=== PATIENT | male | born 1950 | race Caucasian/White ===

== ENCOUNTER → 2023-10-22 | Outpatient (CLI) | payer OTHER ==
[~2023-10-22] MED LIST: AEC81 PO; AMIO200T44 PO; APIX5TAB PO; ATOR10 PO; CETI10TA87 PO; FLUT16H NASAL; FURO20TA4 PO; METO50TA9 PO; MIRT-22 PO; NITR0.4T50 SL; PANT40TA54 PO; VIT1CAPS47 PO
== END | disposition home or self-care (01) ==
LOC: SHCH 13:46
PROVIDERS: ATTEND Internal Medicine Cardiovascular Disease
DX: I08.0 Rheumatic disorders of both mitral and aortic valves (principal); I25.10 Atherosclerotic heart disease of native coronary artery without angina pectoris; I11.9 Hypertensive heart disease without heart failure; E78.5 Hyperlipidemia, unspecified; Z95.1 Presence of aortocoronary bypass graft
CPT/HCPCS: 93306

== ENCOUNTER 2024-01-05 15:21 | Observation (INO) | payer OTHER ==
[~2024-01-05] VITALS: Ht 172.7 cm; Wt 102.5 kg
[2024-01-05 16:00] LABS: BASOPHILS # (AUTO) 0.05 K/uL (0.00-0.20); BASOPHILS % (AUTO) 0.6 % (0.0-5.0); EOSINOPHILS # (AUTO) 0.27 K/uL (0.00-0.70); EOSINOPHILS % (AUTO) 3.3 % (0.0-8.0); HEMATOCRIT 43.2 % (42-54); IMMATURE GRANULOCYTE ABSOLUTE 0.03 K/uL (0-1); LYMPHOCYTES # (AUTO) 2.3 K/uL (1.0-4.8); MEAN CORPUSCULAR HEMOGLOBIN 28.9 pg (27.0-33.0); MEAN CORPUSCULAR HGB CONC 33.1 g/dL (32.0-36.0); MEAN CORPUSCULAR VOLUME 87.3 fL (79-99); MONOCYTES # (AUTO) 0.8 K/uL (0.1-1.0); MONOCYTES % (AUTO) 9.3 % (3.0-13.0); NEUTROPHILS # (AUTO) 4.6 K/uL (1.8-7.7); NEUTROPHILS % (AUTO) 57.4 % (40.0-77.0); PLATELET COUNT (AUTO) 235 K/uL (130-400); RED BLOOD CELL COUNT(AUTO) 4.95 MIL/uL (4.50-6.20); RED CELL DISTRIBUTION WIDTH 15.7 % (11.0-15.5); WHITE BLOOD COUNT (AUTO) 8.1 K/uL (4.8-10.8)
[2024-01-05 16:10] LABS: CREATININE 1.4 mg/dL (0.5-1.3); POTASSIUM 4.4 mmol/L (3.5-5.1)
[2024-01-05 16:23] LABS: B-TYPE NATRIURETIC PEPTIDE 120 pg/mL (0-100)
[2024-01-05] MEDS: NITROGLYCERIN 0.4 MG SL TAB SL PRN (16:57)
[2024-01-05] MEDS: ASPIRIN 325MG TAB PO ONE (17:47)
[2024-01-05] MEDS: LACTATED RINGERS 1000ML 1,000 ML IV SCH (18:30)
[2024-01-05 19:46] LABS: APPEARANCE,URINE CLEAR (CLEAR); BILIRUBIN,URINE NEGATIVE (NEGATIVE); COLOR,URINE LIGHT-YELLOW (YELLOW); GLUCOSE, URINE (UA) NEGATIVE (NEGATIVE); KETONES,URINE NEGATIVE (NEGATIVE); LEUKOCYTE ESTERASE ,URINE NEGATIVE Leu/uL (NEGATIVE); NITRATE,URINE NEGATIVE (NEGATIVE); OCCULT BLOOD,URINE NEGATIVE (NEGATIVE); PH,URINE 5.5 (5.0-8.0); PROTEIN,URINE NEGATIVE (NEGATIVE); UROBILINOGEN,URINE 0.2 mg/dL (0.2-1.0)
[2024-01-05 19:48] LABS: ADD UA MICROSCOPIC NO
[2024-01-05] MEDS: ATORVASTATIN 20 MG TABLET PO SCH (20:15)
[2024-01-05] MEDS: CLOPIDOGREL 75MG TAB PO SCH (20:15)
[2024-01-05] MEDS: LoSARTan 25 MG TABLET PO SCH (20:15)
[2024-01-05] MEDS ORDERED: acetaMINOPHEN 325 MG TAB PO PRN ×2 (20:30)
[2024-01-05] MEDS ORDERED: ONDANSETRON 4MG INJ IV PRN (20:30)
[2024-01-05] MEDS: 0.9%NACL 1000ML 1,000 ML IV SCH (20:46)
[2024-01-05 23:50] VITALS: BP 139/76; PULSE 60; RESP 18; O2SAT 95
[2024-01-06] VITALS (8 sets, daily range): BP systolic 124–132; BP diastolic 60–74; PULSE 57–71; RESP 18–20; O2SAT 96–98
[2024-01-06] MEDS ORDERED: VALA100031 PO (00:17)
[2024-01-06] MEDS ORDERED: KETO10TA2 PO (00:17)
[2024-01-06] MEDS ORDERED: apap/codeine PO (00:17)
[2024-01-06] MEDS ORDERED: ATOR10 PO (00:24)
[2024-01-06] MEDS ORDERED: LOSA25TA41 PO (00:24)
[2024-01-06] MEDS ORDERED: MIRT-22 PO (00:24)
[2024-01-06] MEDS ORDERED: APIX5TAB PO (00:24)
[2024-01-06] MEDS ORDERED: ATOR20TA65 PO (00:24)
[2024-01-06] MEDS ORDERED: ASPI-1197 PO (00:24)
[2024-01-06] MEDS ORDERED: METO-391 PO (00:24)
[2024-01-06] MEDS ORDERED: PANT40TA54 PO (00:24)
[2024-01-06] MEDS ORDERED: MIRT45TA83 PO (00:25)
[2024-01-06] MEDS: MORPHINE 2 MG SYG IV PRN (01:00)
[2024-01-06 07:14] LABS: BASOPHILS # (AUTO) 0.04 K/uL (0.00-0.20); BASOPHILS % (AUTO) 0.4 % (0.0-5.0); EOSINOPHILS # (AUTO) 0.31 K/uL (0.00-0.70); EOSINOPHILS % (AUTO) 3.5 % (0.0-8.0); HEMATOCRIT 41.2 % (42-54); IMMATURE GRANULOCYTE ABSOLUTE 0.03 K/uL (0-1); LYMPHOCYTES # (AUTO) 2.1 K/uL (1.0-4.8); LYMPHOCYTES % (AUTO) 23.1 % (21.0-51.0); MEAN CORPUSCULAR HEMOGLOBIN 29.1 pg (27.0-33.0); MEAN CORPUSCULAR HGB CONC 32.5 g/dL (32.0-36.0); MEAN CORPUSCULAR VOLUME 89.6 fL (79-99); MONOCYTES # (AUTO) 0.8 K/uL (0.1-1.0); MONOCYTES % (AUTO) 8.4 % (3.0-13.0); NEUTROPHILS # (AUTO) 5.7 K/uL (1.8-7.7); NEUTROPHILS % (AUTO) 64.3 % (40.0-77.0); PLATELET COUNT (AUTO) 211 K/uL (130-400); RED CELL DISTRIBUTION WIDTH 15.7 % (11.0-15.5); WHITE BLOOD COUNT (AUTO) 8.9 K/uL (4.8-10.8)
[2024-01-06 07:30] LABS: CREATININE 1.3 mg/dL (0.5-1.3); MAGNESIUM 1.9 mg/dL (1.80-2.40); PHOSPHORUS 3.8 mg/dL (2.5-4.9); POTASSIUM 4.8 mmol/L (3.5-5.1)
[2024-01-06 07:55] LABS: INR 1.2 (0.85-1.15); PROTHROMBIN TIME 12.8 SEC (9.6-11.6)
[2024-01-06 07:56] LABS: PARTIAL THROMBOPLASTIN TIME 26.8 SEC (26.3-35.5)
[2024-01-06] MEDS: ASPIRIN 81 MG EC TAB PO SCH (08:53)
[2024-01-06] MEDS: FAMOTIDINE 20MG TAB PO SCH (08:54)
[2024-01-06] MEDS: metOPROLol sucCINATE 50 MG TAB.SR.24H PO SCH (08:54)
[2024-01-06] MEDS: GABApentin 100 MG CAPSULE PO SCH (09:53)
[2024-01-06] MEDS: valaCYCLOvir HCL 500 MG TABLET PO SCH (12:00)
[2024-01-06] MEDS: PREDNISONE 20 MG TABLET PO ONE (12:36)
[2024-01-06] MEDS: MIRTAZAPINE 15 MG TABLET PO SCH (20:52)
[2024-01-06] MEDS: APIXaban 5 MG TABLET PO SCH (20:52)
[2024-01-06] MEDS: LACTULOSE 20 GM/30 ML UDCUP PO PRN (22:17)
[2024-01-07] VITALS (8 sets, daily range): BP systolic 118–132; BP diastolic 64–76; PULSE 57–76; RESP 17–19; O2SAT 96–97
[2024-01-07] MEDS: doCUSate SODIUM 100 MG CAP PO SCH (09:00)
[2024-01-07] MEDS: PREDNISONE 20 MG TABLET PO SCH (09:00)
[2024-01-07] MEDS: GABAPENTIN 300 MG CAPSULE PO SCH (14:26)
[2024-01-07] MEDS ORDERED: GABA300C PO (15:16)
[2024-01-07] MEDS ORDERED: PRED20B PO (15:16)
== END 2024-01-07 16:55 | disposition home or self-care (01) ==
LOC: EDH 15:21 → EDHIP 20:07 → 4AH 23:34
PROVIDERS: ADMIT Internal Medicine; ATTEND Internal Medicine
DX: I25.709 Atherosclerosis of coronary artery bypass graft(s), unspecified, with unspecified angina pectoris (principal); I65.29 Occlusion and stenosis of unspecified carotid artery; B02.9 Zoster without complications; R79.89 Other specified abnormal findings of blood chemistry; I10 Essential (primary) hypertension; E78.5 Hyperlipidemia, unspecified; I48.0 Paroxysmal atrial fibrillation; F41.9 Anxiety disorder, unspecified; E11.9 Type 2 diabetes mellitus without complications; R60.0 Localized edema; I16.0 Hypertensive urgency; G47.30 Sleep apnea, unspecified; I25.2 Old myocardial infarction; Z79.899 Other long term (current) drug therapy; Z79.02 Long term (current) use of antithrombotics/antiplatelets; Z79.82 Long term (current) use of aspirin; Z95.1 Presence of aortocoronary bypass graft; Z88.2 Allergy status to sulfonamides; Z90.49 Acquired absence of other specified parts of digestive tract
CPT/HCPCS: 99285; 82550; 84484 ×7; 80048 ×2; 83880; 85025 ×2; 81003; 36415 ×2; 71045; 93005 ×2; 96374; 96376; 96361 ×3; 83735; 84100; 85610; 85730; 86850; 86900; 86901; 74018; G0378 ×45; J7120; A4600; J2270 ×2

== ENCOUNTER 2024-12-25 09:03 | Emergency (ER) | payer OTHER ==
[~2024-12-25] VITALS: Ht 172.7 cm; Wt 103.9 kg
[~2024-12-25 09:03] MED LIST changes: -AEC81 PO; -AMIO200T44 PO; +ASPI-1197 PO; -ATOR10 PO; +ATOR20TA65 PO; -CETI10TA87 PO; -FLUT16H NASAL; -FURO20TA4 PO; +GABA300C PO; +KETO10TA2 PO; +LOSA25TA41 PO; +METO-391 PO; -METO50TA9 PO; -MIRT-22 PO; +MIRT45TA83 PO; -NITR0.4T50 SL; +PRED20B PO; +VALA100031 PO; -VIT1CAPS47 PO
--- NOTE | 2024-12-25 09:21 | ERN ---
General Chief Complaint: Palpitations Stated Complaint: PALPITATIONS, AFIB Time Seen by : 09:06 Source: patient History of Present Illness Initial Comments Patient is a 74-year-old gentleman coming in after being sent by his computer assembler due to uncontrolled AFib. Per patient he took extra medications for his AFib. Medications include metoprolol. Upon arriving in triage he states he feels much better. Allergies: Coded Allergies: Sulfa (Sulfonamide Antibiotics) (Unverified Allergy, Intermediate, RASH, 07/17/23) Home Meds Active Scripts Prednisone (Deltasone/Orasone [Bulk]) 20 Mg Tab, 20 MG PO DAILY, #7 TAB 0 Refills Prov:SCARLET CHANG MD 01/07/24 Gabapentin (Neurontin) 300 Mg Capsule, 300 MG PO TID, #90 CAP 0 Refills Prov:SCARLET CHANG MD 01/07/24 Reported Medications Mirtazapine (Mirtazapine) 45 Mg Tablet, 22.5 MG PO HS, TAB 01/06/24 Atorvastatin Calcium (Atorvastatin Calcium) 20 Mg Tablet, 20 MG PO DAILY, TAB 01/06/24 Pantoprazole Sodium (Pantoprazole Sodium) 40 Mg Tablet.dr, 40 MG PO DAILY, TAB 01/06/24 Aspirin (Aspirin) 81 Mg Tab.chew, 81 MG PO DAILY, TAB.CHEW 01/06/24 Apixaban (Eliquis) 5 Mg Tablet, 5 MG PO BID, TAB 01/06/24 Metoprolol Succinate (Metoprolol Succinate) 50 Mg Tab.er.24h, 50 MG PO DAILY, TAB 01/06/24 Losartan Potassium (Losartan Potassium) 25 Mg Tablet, 12.5 MG PO DAILY, TAB 01/06/24 Valacyclovir HCl (Valacyclovir) 1,000 Mg Tablet, 1000 MG PO TID, TAB 01/06/24 Ketorolac Tromethamine (Ketorolac Tromethamine) 10 Mg Tablet, 10 MG PO Q6HPRN PRN for PAIN LEVEL 1 TO 5, TAB 01/06/24 Past Medical History Past Medical History: A-Fib, CAD, Heart Disease, Hypertension, Other Medical History Other: CAROTID STENOSIS Past Surgical History: Cholecystectomy, CABG Family History Family History: Negative Social History Social History: Negative ROS Dictation CONSTITUTIONAL: No chills, no fever, no weakness, no diaphoresis, no malaise. HEAD/FACE: No signs of trauma. EENT: No eye pain, no blurred vision, no tearing, no double vision, no ear pain, no ear discharge, no nose pain, no nasal congestion, no throat pain, no throat swelling, no mouth pain. RESPIRATORY: No cough, no orthopnea, no SOB, no stridor, no wheezing. CARDIOVASCULAR: No chest pain, no edema, no palpitations, no syncope. GASTROINTESTINAL/ABDOMINAL: No abdominal pain, no constipation, no diarrhea, no nausea, no vomiting. GENITOURINARY: No abnormal discharge, no dysuria, no frequent urination, no hematuria. No complaints of pain in the genitals. MUSCULOSKELETAL: No back pain, no gout, no joint pain, no joint swelling, no muscle pain, no muscle stiffness, no neck pain. INTEGUMENTARY: No change in color, no change in hair/nails, no dryness, no lesion, no lumps, no rash. NEUROLOGICAL/PSYCH: No anxiety, not depressed, no emotional problem, no headache, no numbness, no pre-existing deficit, no history of seizures, no tremors, no weakness. HEMATOLOGIC/LYMPHATIC: Not anemic, no history of blood clots, no apparent bleeding, no bruising, glands not swollen. All Systems Negative, Except as Noted. Physical Exam Physical Exam Dictation VITAL SIGNS: Reviewed. GENERAL APPEARANCE: Alert, oriented x3, no acute distress, obese. HEAD AND FACE: Non-traumatic. EYES: PERRL, pink conjunctivas, eyelid no trauma, anterior chamber clear. EARS: Pinnas intact and no signs of trauma or erythema. Ear canals clear and no discharge. TMs no erythema. NOSE: No discharge, no bleeding. OROPHARYNX: Mouth normal, teeth no caries, tongue pink. Pharynx clear, no erythema. Tonsils no exudates, no abscesses noted. Mucous membrane moist. NECK: Supple, non-tender, no thyromegaly, no masses, no JVD, no bruits. BREAST: Deferred. CHEST: No tenderness, no crepitus, no paradoxical movement, no retractions. LUNGS: Clear, well-ventilated, symmetric, no rales, no wheezing, no rhonchi, no stridor, good breath sounds bilaterally. HEART: Regular rate, regular rhythm, no murmur, no gallops. VASCULAR: No peripheral edema. ABDOMEN: Soft, positive bowel sounds, nondistended, no guarding, nontender, no rebound, no masses no hepatomegaly, no splenomegaly, no Stockton's sign, no hernias. RECTAL: Deferred. GENITAL: Deferred. NEUROLOGICAL: Normal speech, gross motor function intact, gross sensory function intact. MUSCULOSKELETAL: Neck nontender, full range of motion, back nontender, full range of motion. EXTREMITIES: Nontender, full range of motion. SKIN: Color pink, dry, no turgor, no rash, no lacerations, no abrasions, no contusions. LYMPHATICS: Deferred. Results Laboratory and Microbiology Labs Reviewed?: Yes EKG/XRAY/US/CT/MRI EKG Comment 12/25/2024 time 9:09 a.m. Ventricular rate 75 Sinus rhythm MD [address] wave elevation or depression MDM MDM: Differential diagnosis: History of AFib, wellness exam Rationale: Tests considered and ordered secondary to shared decision making include: Previous outside records reviewed: Old ER visits. Risk of complication and/or morbidity or mortality of patient management: None Medications-Per medication reconciliation Need for hospitalization: Patient does not meet criteria for hospitalization. Need for emergency major/minor surgery: No Patient is a 74-year-old male coming in complaining of uncontrolled AFib. Patient had taking in his has been medication increased states by recommendations of computer assembler. Spoke to Dr. Travis Victor's a computer assembler who sent patient in upon evaluation in triage EKG shows normal sinus rhythm with a heart rate of 75. Patient was asymptomatic. He will be discharged in stable condition with a diagnosis of AFib controlled. Patient was evaluated by computer assembler Dr. Robles per his recommendation patient is okay to be discharged on follow up as outpatient ED Course Orders Procedure Category Date Status Time 12 Lead Ekg Tracing- EKG 12/25/24 Complete Technical 09:21 Vital Signs Date Time Temp Pulse Resp B/P (MAP) Pulse Ox O2 Delivery O2 Flow Rate FiO2 12/25/24 09:08 98.2 72 16 120/66 98 Room Air* 0 21 12/25/24 09:05 98.2 69 16 120/66 97 Room Air 0 DX & DISP Disposition: Discharge Departure Impression: Primary Impression: History of atrial fibrillation Condition: Stable Additional Instructions: You have been reviewed in the emergency department at [facility] after presenting with chest pain. After considering your history, your risk factors, your EKG and your blood test troponins, have been found to be at very low risk less than (1 in 100) of having a major adverse cardiac event (like heart attack) in the near future. In the " low risk" group, the risks of doing further tests and treatment as the inpatient outweighs the benefits. In many patients in the low risk group for the test of any sort or unnecessary, however he should discuss this further with his general practitioner who will understand the medical and personal backgrounds better. Because we have never declared you" no risk" we would suggest. 1 returning for medical review if you have further episodes of chest pain/arm pain or other concerning symptoms like dizziness, collapse, palpitations or shortness of breath. 2. Following up with your local doctor who will consider the need for further testing and will also ensure that any modifiable risk factors you may have for heart disease are optimally managed. Patient will be discharged in stable condition at the moment discharge patient states , no chest pain Referrals: CASI BENITO MD (PCP) DEMETRICE OCHOA MD Dec 25, 2024 09:21
--- NOTE | 2024-12-25 09:23 | EKG ---
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
[2024-12-25 10:32] VITALS: BP 102/60; PULSE 64; RESP 16; TEMP 99; O2SAT 96
== END 2024-12-25 10:39 | disposition home or self-care (01) ==
LOC: EDH 09:03
DX: I48.91 Unspecified atrial fibrillation (principal); I25.10 Atherosclerotic heart disease of native coronary artery without angina pectoris; I11.9 Hypertensive heart disease without heart failure; Z79.01 Long term (current) use of anticoagulants; Z79.52 Long term (current) use of systemic steroids; Z79.624 Long term (current) use of inhibitors of nucleotide synthesis; Z79.82 Long term (current) use of aspirin; Z79.899 Other long term (current) drug therapy; Z88.2 Allergy status to sulfonamides; Z90.49 Acquired absence of other specified parts of digestive tract; Z95.1 Presence of aortocoronary bypass graft
CPT/HCPCS: 93005; 99284

== ENCOUNTER 2025-01-20 17:01 | Emergency (ER) | payer OTHER ==
[~2025-01-20] VITALS: Ht 172.7 cm; Wt 105.2 kg
--- NOTE | 2025-01-20 17:21 | ERN ---
ED Note History of Present Illness Stated Complaint: BRADYCARDIA Chief Complaint: Bradycardia Time Seen by MD: 17:12 Dictation: PATIENT IS A 74-YEAR-OLD MALE COMING IN HIS INSTRUCTIONAL MATERIALS DIRECTOR'S HIS DOCTOR ISABELA. PATIENT STATES HE HAS BEEN FEELING BRADYCARDIC WITH A SLOW HEART RATE WITH LIGHTHEADEDNESS FOR THE LAST SEVERAL DAYS. STATES HE WENT TO SEE HIS INSTRUCTIONAL MATERIALS DIRECTOR'S YESTERDAY AND THE PA DID AN EKG, SHE TOLD HIM THE RATE WAS SLOW AND THAT SHE WAS GOING TO REFER HIM TO A DISTRIBUTION CENTER ASSISTANT. HE STATES HE HAS HAD NO CHEST PAIN NO BACK PAIN. STATES HE HAS HAD THREE PRIOR HEART ATTACKS. HE IS CURRENTLY BRADYCARDIC, NORMOTENSIVE. HE SAID THAT LAST WEEK HE WAS IN HIS DOCTOR'S OFFICE AND HE WAS TACHYCARDIC. HE HAS TAKEN METOPROLOL 50 MG. Allergies: Coded Allergies: Sulfa (Sulfonamide Antibiotics) (Unverified Allergy, Intermediate, RASH, 07/17/23) Home Meds Active Scripts Prednisone (Deltasone/Orasone [Bulk]) 20 Mg Tab, 20 MG PO DAILY, #7 TAB 0 Refills Prov:SCARLET CHANG MD 01/07/24 Gabapentin (Neurontin) 300 Mg Capsule, 300 MG PO TID, #90 CAP 0 Refills Prov:SCARLET CHANG MD 01/07/24 Reported Medications Mirtazapine (Mirtazapine) 45 Mg Tablet, 22.5 MG PO HS, TAB 01/06/24 Atorvastatin Calcium (Atorvastatin Calcium) 20 Mg Tablet, 20 MG PO DAILY, TAB 01/06/24 Pantoprazole Sodium (Pantoprazole Sodium) 40 Mg Tablet.dr, 40 MG PO DAILY, TAB 01/06/24 Aspirin (Aspirin) 81 Mg Tab.chew, 81 MG PO DAILY, TAB.CHEW 01/06/24 Apixaban (Eliquis) 5 Mg Tablet, 5 MG PO BID, TAB 01/06/24 Metoprolol Succinate (Metoprolol Succinate) 50 Mg Tab.er.24h, 50 MG PO DAILY, TAB 01/06/24 Losartan Potassium (Losartan Potassium) 25 Mg Tablet, 12.5 MG PO DAILY, TAB 01/06/24 Valacyclovir HCl (Valacyclovir) 1,000 Mg Tablet, 1000 MG PO TID, TAB 01/06/24 Ketorolac Tromethamine (Ketorolac Tromethamine) 10 Mg Tablet, 10 MG PO Q6HPRN PRN for PAIN LEVEL 1 TO 5, TAB 01/06/24 Past Medical History Past Medical History: A-Fib, CAD, Heart Disease, Hypertension, [place], Other Additional Past Medical Hx: CAROTID STENOSIS Surgical History: Cholecystectomy, CABG Family History: Negative Social History: Negative RN Note Reviewed/Agreed w/PFSH: Yes Review of System Dictation CONSTITUTIONAL: NEGATIVE EXCEPT FOR HPI LIGHTHEADED HEAD/FACE: NEGATIVE EXCEPT FOR HPI EENT: NEGATIVE EXCEPT FOR HPI RESPIRATORY: NEGATIVE EXCEPT FOR HPI BRADYCARDIA GASTROINTESTINAL/ABDOMINAL: NEGATIVE EXCEPT FOR HPI GENITOURINARY: NEGATIVE EXCEPT FOR HPI MUSCULOSKELETAL: NEGATIVE EXCEPT FOR HPI INTEGUMENTARY: NEGATIVE EXCEPT FOR HPI NEUROLOGICAL/PSYCH: NEGATIVE EXCEPT FOR HPI HEMATOLOGIC/LYMPHATIC: NEGATIVE EXCEPT FOR HPI ALL SYSTEMS NEGATIVE, EXCEPT NOTED ABOVE. 13 POINT REVIEW OF SYSTEMS ASSESSED AND ALL NEGATIVE EXCEPT FOR ABOVE. Initial Vital Sign VS Vital Signs Date Time Temp Pulse Resp B/P (MAP) Pulse Ox O2 Delivery O2 Flow Rate FiO2 01/20/25 17:02 98.2 47 20 119/53 99 Room Air 01/20/25 17:32 0 21 Physical Exam Dictation VITAL SIGNS REVIEWED GENERAL APPEARANCE: ALERT, ORIENTED X 3, NO ACUTE DISTRESS, WELL DEVELOPED, NOURISHED. HEAD AND FACE: NON-TRAUMATIC. EYES: PERRL, PINK CONJUNCTIVAS, EYELID NO TRAUMA, ANTERIOR CHAMBER WITH ARCUS SENILIS. EARS: PINNAS INTACT AND NO SIGNS OF TRAUMA OR ERYTHEMA EAR CANALS CLEAR AND NO DISCHARGE TM NO ERYTHEMA NOSE: NO DISCHARGE, NO BLEEDING. OROPHARYNX: MOUTH NORMAL, TONGUE PINK, PHARYNX CLEAR,NO ERYTHEMA, TONSILS NO EXUDATES, NO ABSCESSES NOTED, MUCOUS MEMBRANE MOIST NECK: SUPPLE, NON-TENDER, NO THYROMEGALY, NO MASSES, NO JVD, NO BRUITS BREAST:DEFERRED CHEST:NO TENDERNESS, NO CREPITUS, NO PARADOXICAL MOVEMENT, NO RETRACTIONS LUNGS:CLEAR, WELL-VENTILATED, SYMMETRIC, NO RALES, NO WHEEZING, NO RHONCHI, NO STRIDOR, GOOD BREATH SOUNDS BILATERALLY HEART: BRADYCARDIC/REGULAR NO MURMUR, NO GALLOPS VASCULAR: TRACE PERIPHERAL EDEMA, ABDOMEN: SOFT, POSITIVE BOWEL SOUNDS, NONDISTENDED, NO GUARDING, NONTENDER, NO REBOUND, NO MASSES NO HEPATOMEGALY, NO SPLENOMEGALY, NO DAVILA'S SIGN, NO HERNIAS. RECTAL: DEFERRED GENITAL: DEFERRED NEUROLOGICAL: NORMAL SPEECH, MOTOR FUNCTION INTACT, SENSORY FUNCTION INTACT MUSCULOSKELETAL: NECK NONTENDER, FULL RANGE OF MOTION, BACK NONTENDER, FULL RANGE OF MOTION, EXTREMITIES: NONTENDER, FULL RANGE OF MOTION SKIN: COLOR PINK, DRY, NO TURGOR, NO RASH, NO LACERATIONS, NO ABRASIONS, NO CONTUSIONS. LYMPHATIC: DEFERRED Results (Laboratory/Radiology) Laboratory/Radiology Laboratory Tests Test 01/20/25 17:33 01/20/25 18:37 White Blood Count 8.1 K/uL (4.8-10.8) Red Blood Count 4.49 MIL/uL (4.50-6.20) L Hemoglobin 13.3 g/dL (14.0-18.0) L Hematocrit 40.5 % (42-54) L Mean Corpuscular Volume 90.2 fL (79-99) Mean Corpuscular Hemoglobin 29.6 pg (27.0-33.0) Mean Corpuscular Hemoglobin Concent 32.8 g/dL (32.0-36.0) Red Cell Distribution Width 13.4 % (11.0-15.5) Platelet Count 239 K/uL (130-400) Mean Platelet Volume 10.0 fL (7.5-10.5) Immature Granulocyte % (Auto) 0.2 % (0-1) Neutrophils (%) (Auto) 47.9 % (40.0-77.0) Lymphocytes (%) (Auto) 33.9 % (21.0-51.0) Monocytes (%) (Auto) 10.1 % (3.0-13.0) Eosinophils (%) (Auto) 7.2 % (0.0-8.0) Basophils (%) (Auto) 0.7 % (0.0-5.0) Neutrophils # (Auto) 3.9 K/uL (1.8-7.7) Lymphocytes # (Auto) 2.7 K/uL (1.0-4.8) Monocytes # (Auto) 0.8 K/uL (0.1-1.0) Eosinophils # (Auto) 0.58 K/uL (0.00-0.70) Basophils # (Auto) 0.06 K/uL (0.00-0.20) Absolute Immature Granulocyte (auto 0.02 K/uL (0-1) Nucleated Red Blood Cells 0.0 % (0.0-0.19) Sodium Level 137 mmol/L (136-145) Potassium Level 3.9 mmol/L (3.5-5.1) Chloride Level 103 mmol/L (101-111) Carbon Dioxide Level 27 mmol/L (21-32) Blood Urea Nitrogen 18 mg/dL (7-18) Creatinine 1.3 mg/dL (0.5-1.3) Glomerular Filtration Rate Calc 58 mL/min (>90) Random Glucose 118 mg/dL (70-105) H Total Calcium 8.7 mg/dL (8.5-10.1) Magnesium Level 2.40 mg/dL (1.80-2.40) Troponin I High Sensitivity 41 ng/L (4-75) B-Type Natriuretic Peptide 365 pg/mL (0-100) H Urine Color COLORLESS (YELLOW) Urine Appearance CLEAR (CLEAR) Urine pH 5.5 (5.0-8.0) Urine Specific [place] 1.006 (1.001-1.031) Urine Protein NEGATIVE mg/dL (NEGATIVE) Urine Glucose (UA) >=1000 mg/dL (NEGATIVE) H Urine Ketones NEGATIVE mg/dL (NEGATIVE) Urine Occult Blood NEGATIVE (NEGATIVE) Urine Nitrate NEGATIVE (NEGATIVE) Urine Bilirubin NEGATIVE mg/dL (NEGATIVE) Urine Urobilinogen 0.2 mg/dL (0.2-1.0) Urine Leukocyte Esterase NEGATIVE Amelia/uL SEFERINO: SHORTNESS A BREATH ORDERING PHYSICIAN: ARTIE WESTON NP PROCEDURE: CXR1VW - CHEST 1VW EXAM: CR Chest, 1 View. CLINICAL HISTORY: SHORTNESS A BREATH COMPARISON: Radiograph dated January 05, 2024. FINDINGS: LUNGS: The lungs show no infiltrate or other acute finding. PLEURAL SPACES: No evidence of pleural effusion or pneumothorax. MEDIASTINUM: Prior sternotomy. Heart size is stable. Pulmonary vessels and interstitial markings are within normal limits. BONES: No acute osseous abnormality. IMPRESSION: 1. No acute cardiopulmonary findings. /[place] DICTATED BY: AYDEE BLUM Jr., MD DATE: 01/20/251945 ELECTRONICALLY SIGNED BY: AYDEE BLUM Jr., MD DATE: 01/20/251945 Labs Reviewed?: Yes EKG Comment: EKG SINUS BRADYCARDIA/HEART RATE 48/AXIS NORMAL/NO ECTOPY ED Course ED Course Orders Procedure Category Date Status Time B-Type Natriuretic LAB 01/20/25 Complete Peptide 17:17 Cbc With Differential LAB 01/20/25 Complete 17:17 Chest 1vw RAD 01/20/25 Resulted 17:17 12 Lead Ekg Tracing- EKG 01/20/25 Logged Technical 17:17 Magnesium LAB 01/20/25 Complete 17:17 Troponin I High LAB 01/20/25 Complete Sensitivity 17:17 Urinalysis Profile LAB 01/20/25 Complete 17:17 Basic Metabolic Panel LAB 01/20/25 Complete 17:17 Vital Signs Date Time Temp Pulse Resp B/P (MAP) Pulse Ox O2 Delivery O2 Flow Rate FiO2 01/20/25 19:44 97.3 47 16 131/68 98 Room Air* 0 21 01/20/25 17:32 98.1 54 16 124/57 98 Room Air* 0 21 01/20/25 17:02 98.2 47 20 119/53 99 Room Air 1944/SPOKE WITH DR. SILVANO PATEL AND REVIEWED EKG LABS. THAT THERE WAS NO REASON TO KEEP PATIENT IN THE HOSPITAL THAT HE WAS DONE HEMODYNAMICALLY STABLE AND HAD NO COMPLAINTS. SHE SAID SHE WOULD HAVE PUT IN NO FOR HIM TO SEE HIS INSTRUCTIONAL MATERIALS DIRECTOR'S ON WEDNESDAY. THESE WERE DISCUSSED WITH THE PATIENT IN HIS THEY AGREED WITH THE FINDINGS. HEART Score Response (Comments) Value Age: > 65yrs (+2) 2 Risk Factors: 3+ risk factors (+2) 2 Initial Troponin: Normal limit (0) 0 Total 4 Medical Decision Making MDM MDM: DIFFERENTIAL DIAGNOSIS: BRADYCARDIA/SYMPTOMATIC BRADYCARDIA/ELECTROLYTE IMBALANCE/DEHYDRATION/PNEUMONIA/BRONCHITIS RATIONALE: TESTS CONSIDERED AND ORDERED SECONDARY TO SHARED DECISION MAKING INCLUDE: EKG/LABS/RADIOLOGY PREVIOUS OUTSIDE RECORDS REVIEWED: OLD ER VISITS. RISK OF COMPLICATION AND/OR MORBIDITY OR MORTALITY OF PATIENT MANAGEMENT: NONE MEDICATIONS-PER MEDICATION RECONCILIATION NEED FOR HOSPITALIZATION: PATIENT DOES NOT MEET CRITERIA FOR HOSPITALIZATION. NO NEED FOR EMERGENCY MAJOR/MINOR SURGERY: NO THERE ARE NO SOCIAL CONCERNS WITH THIS PATIENT. PRESCRIPTION DRUG MANAGEMENT NONE PRESCRIPTIONS WILL INCLUDE SYMPTOMATIC CARE PATIENT'S PRIOR EXTERNAL MEDICAL RECORDS FROM OTHER ER VISITS WERE REVIEWED BY ME INDICATED. PRIOR TESTING AND RESULTS FROM PREVIOUS VISITS WERE REVIEWED. PRIOR TESTS WERE TAKEN INTO ACCOUNT WITH MEDICAL DECISION MAKING AND RESOURCE UTILIZATION, INDEPENDENT HISTORIAN/HISTORIANS WERE USED TO OBTAIN COMPLETE MEDICAL HISTORY. I INDEPENDENTLY INTERPRETED THE TEST THAT WERE PERFORMED, RESULTS WERE REVIEWED BY ME AND CONSIDERED FINDINGS ON RADIOLOGY IF ORDERED. MEDICAL MANAGEMENT AND EXAMINATION INTERPRETATION DISCUSSIONS WERE HAD BY ME WITH OTHER QUALIFIED HEALTHCARE PROFESSIONALS INDICATED FOR THE PATIENT'S CARE. DX & DISP Disposition: Discharge Departure Impression: Primary Impression: Sinus bradycardia by electrocardiogram Condition: Stable Additional Instructions: FOLLOW-UP WITH PRIMARY CARE PROVIDER IN 1 TO 2 DAYS. TAKE MEDICATIONS DIRECTED HERE IN THE EMERGENCY ROOM. OKAY TO CONTINUE HOME MEDICATIONS UNLESS OTHERWISE DISCUSSED DURING YOUR VISIT IN THE EMERGENCY ROOM TODAY. RETURN TO YOUR NEAREST EMERGENCY ROOM IF SYMPTOMS WORSEN OR IF THERE IS NO IMPROVEMENT. CALL 911 IF YOU NEED IMMEDIATE ASSISTANCE. TAKE TYLENOL OR MOTRIN [id number] NEEDED AND IF NO CONTRAINDICATIONS ARE PRESENT. INCREASE ORAL HYDRATION. A WOUND CULTURE OR URINE CULTURE WAS ORDERED HERE IN THE EMERGENCY ROOM DEPARTMENT PLEASE FOLLOW-UP WITH PRIMARY CARE PROVIDER AND ADVISE THEM TO GET REPEAT PORTS FROM OUR FACILITY. IF YOU HAD ANY CIERRA WRAP/SPLINTS THAT WERE APPLIED HERE, PLEASE DO NOT REMOVE THEM UNTIL YOU SEE YOUR PRIMARY CARE OR SPECIALTY. CONTINUE ALL MEDICATIONS AND TREATMENTS AT HOME, FOLLOW UP WITH HIS OFFICE ON WEDNESDAY. Referrals: CASI BENITO MD (PCP) Time of Disposition: 19:56 I have reviewed the case, and I agree with, Diagnosis and Plan ARTIE WESTON NP Jan 20, 2025 17:21
[2025-01-20 17:48] LABS: IMMATURE GRANULOCYTE ABSOLUTE 0.02 K/uL (0-1); NUCLEATED RED BLOOD CELLS 0.0 % (0.0-0.19); PLATELET COUNT (AUTO) 239 K/uL (130-400); RED BLOOD CELL COUNT(AUTO) 4.49 MIL/uL (4.50-6.20); RED CELL DISTRIBUTION WIDTH 13.4 % (11.0-15.5); WHITE BLOOD COUNT (AUTO) 8.1 K/uL (4.8-10.8)
[2025-01-20 17:56] LABS: CREATININE 1.3 mg/dL (0.5-1.3); GLOMERULAR FILTR. RATE CALC 58.0 mL/min (>90); GLUCOSE,RANDOM 118.0 mg/dL (70-105); SODIUM SERUM 137.0 mmol/L (136-145); UREA NITROGEN, BLOOD 18.0 mg/dL (7-18)
[2025-01-20 18:45] LABS: APPEARANCE,URINE CLEAR (CLEAR); GLUCOSE, URINE (UA) >=1000 mg/dL (NEGATIVE); LEUKOCYTE ESTERASE ,URINE NEGATIVE Leu/uL (NEGATIVE); NITRATE,URINE NEGATIVE (NEGATIVE); OCCULT BLOOD,URINE NEGATIVE (NEGATIVE)
[2025-01-20 18:47] LABS: ADD UA MICROSCOPIC NO
--- NOTE | 2025-01-20 18:48 | HMCIMG ---
EXAM: CR Chest, 1 View. CLINICAL HISTORY: SHORTNESS A BREATH COMPARISON: Radiograph dated January 05, 2024. FINDINGS: LUNGS: The lungs show no infiltrate or other acute finding. PLEURAL SPACES: No evidence of pleural effusion or pneumothorax. MEDIASTINUM: Prior sternotomy. Heart size is stable. Pulmonary vessels and interstitial markings are within normal limits. BONES: No acute osseous abnormality. IMPRESSION: 1. No acute cardiopulmonary findings. /[place]
--- NOTE | 2025-01-20 19:04 | NUR ---
VINEET CHILDRESS AT THIS TIME
[2025-01-20 20:04] VITALS: BP 129/66; PULSE 50; RESP 16; TEMP 97.3; O2SAT 98
--- NOTE | 2025-01-20 22:34 | EKG ---
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
== END 2025-01-20 20:06 | disposition home or self-care (01) ==
LOC: EDH 17:01
DX: R00.1 Bradycardia, unspecified (principal); I48.91 Unspecified atrial fibrillation; I25.2 Old myocardial infarction; I11.9 Hypertensive heart disease without heart failure; I25.10 Atherosclerotic heart disease of native coronary artery without angina pectoris; Z79.01 Long term (current) use of anticoagulants; Z79.52 Long term (current) use of systemic steroids; Z79.624 Long term (current) use of inhibitors of nucleotide synthesis; Z79.82 Long term (current) use of aspirin; Z79.899 Other long term (current) drug therapy; Z88.2 Allergy status to sulfonamides; Z90.49 Acquired absence of other specified parts of digestive tract; Z95.1 Presence of aortocoronary bypass graft
CPT/HCPCS: 36415; 71045; 80048; 81003; 83735; 83880; 84484; 85025; 93005; 99285